=== PATIENT | female | born 1940 | race Caucasian/White ===

== ENCOUNTER 2017-08-27 19:21 | Observation (INO) ==
--- NOTE | 2017-08-27 20:09 | CT ---
STUDY: CT HEAD WITHOUT CONTRAST HISTORY: Dizzy. Low blood pressure. COMPARISON: None. TECHNIQUE: Multiple axial images of the head were obtained from the skull base to the vertex without administration of IV contrast. Automated exposure control (AEC) was utilized to adjust the MA and/or kV. Findings: The sulci, cisterns and ventricles are prominent consistent with diffuse volume loss. There are scattered foci of low attenuation in the periventricular and subcortical white matter of penny th hemispheres. This is a nonspecific finding which likely represents microangiopathic change in a pa tient of this age. There is no evidence of acute territorial infarction, hemorrhage, mass, mass effect or midline shift. There are no abnormal extra-axial fluid collections. There is no evidence of acute osseous abnormality or significant soft tissue swelling. IMPRESSION: 1. No evidence of acute intracranial abnormality. 2. Nonspecific white matter change and volume loss as described. 3. If there remains strong clinical concern for acute intracranial abnormality, then an MRI examinati on should be considered for further evaluation. Reported By:
--- NOTE | 2017-08-27 20:12 | DR.GENAD ---
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 GETTING WORSE. - Complaint/Symptoms Chief Complaint Doctors Comments: DIZZINESS AND ATAXIA THAT STARTED TODAY. - Nurses notes reviewed Nurses Notes Review: Yes - Source History Provided: Patient, Family Member - Mode of Arrival Mode of Arrival: Wheelchair - Timing Came on: Suddenly - Duration Duration: Constant Duration: Days - Severity Severity: Moderate ROS - Review of Systems Constitutional: No Symptoms Reported Eyes: No Symptoms Reported ENTM: No Symptoms Reported Respiratoy: No Symptoms Reported Cardiovascular: No Symptoms Reported Gastrointestinal/Abdominal: No Symptoms Reported Neurological: Dizziness Musculoskeletal: No Symptoms Reported Integumentary: No Symptoms Reported Hematologic/Lymphatic: No Symptoms Reported Endocrine: No Symptoms Reported All Other Systems: Reviewed and Negative PE - General Limitations: No Limitations General Appearance: Alert - Head Head Exam: Normal Inspection - Eyes Eye exam: Normal Appearance - ENT ENT Exam: Normal External Ear Exam External Ear Exam: Normal External Inspection TM/Canal Exam: Bilateral Normal Nose Exam: Normal Nose Exam Mouth Exam: Normal Inspection Throat Exam: Normal Inspection - Neck Neck Exam: Normal Inspection - Chest Chest Inspection: Symmetric Chest Wall Rise - Respiratory Respiratory Exam: Normal Lung Sounds Bilat Respiratory Exam: Bilateral Clear to Auscultation - Cardiovascular Cardiovascular Exam: Regular Rate, Normal Rhythm, Normal Heart Sounds - Abdominal Exam Abdominal Exam: Normal Bowel Sounds, Soft. negative: Tenderness - Extremities Extremities Exam: Normal Inspection - Back Back Exam: Normal Inspection - Neurologic Neurological Exam: Alert, Oriented X3, CN II-XII Intact. negative: Motor Sensory Deficit - Psychiatric Psychiatric Exam: Normal Affect, Normal Mood - Skin Skin Exam: Normal Color - Vital Signs Vitals: Temperature 98.1 F Pulse Rate [Apical] 72 Pulse Rate 67 Respiratory Rate 19 Blood Pressure [Left Arm] 131/63 Blood Pressure 167/72 O2 Sat by Pulse Oximetry 96 MDM - Additional Information Additional Information Obtained From: Family - Differential Diagnosis Differential Diagnosis: DIZZINESS, VERTIGO, CVA, WA, ELECTROLYTE IMBALANCE. Course - Treatment Treatment: SEE ORDERS. - Consultation Consultation Comments: DISCUSS PATIENT WITH DR. CHAMORRO, HE WILL ADMIT PATIENT. - Education/Counseling Education/Counseling: Patient, Family, Education Educated On: Diagnosis, Needs for Follow Up ROR - Labs Reviewed Laboratory Results Reviewed?: Yes Result Diagrams: 08/29/17 05:40 08/29/17 05:40 - XRAY XRAY Interpreted by: Radiologist XRAY Findings: REPORT DISCUSS WITH PATIENT - EKG Rhythm: NSR (EKG NOTED.) - Labs Reviewed Laboratory: WBC Cancelled 08/27/17 19:30 RBC Cancelled 08/27/17 19:30 Hgb Cancelled 08/27/17 19:30 Hct Cancelled 08/27/17 19:30 MCV Cancelled 08/27/17 19:30 MCH Cancelled 08/27/17 19:30 MCHC Cancelled 08/27/17 19:30 RDW Cancelled 08/27/17 19:30 Plt Count Cancelled 08/27/17 19:30 MPV Cancelled 08/27/17 19:30 Neut % (Auto) Cancelled 08/27/17 19:30 Lymph % (Auto) Cancelled 08/27/17 19:30 [place] % (Auto) Cancelled 08/27/17 19:30 Eos % (Auto) Cancelled 08/27/17 19:30 Baso % (Auto) Cancelled 08/27/17 19:30 Neut # (Auto) Cancelled 08/27/17 19:30 Lymph # (Auto) Cancelled 08/27/17 19:30 [place]enson # (Auto) Cancelled 08/27/17 19:30 Eos # (Auto) Cancelled 08/27/17 19:30 Baso # (Auto) Cancelled 08/27/17 19:30 Absolute Nucleated RBC Cancelled 08/27/17 19:30 INR Target Range - 08/27/17 19:30 INR 0.92 (0.8-1.3) 08/27/17 19:30 APTT 27.6 SECONDS (22.9-36.5) 08/27/17 19:30 PTT Comment - 08/27/17 19:30 Sodium Cancelled 08/27/17 19:30 Corrected Sodium Cancelled 08/27/17 19:30 Potassium Cancelled 08/27/17 19:30 Chloride Cancelled 08/27/17 19:30 Carbon Dioxide Cancelled 08/27/17 19:30 BUN Cancelled 08/27/17 19:30 Creatinine Cancelled 08/27/17 19:30 Est GFR (MDRD) Af Amer Cancelled 08/27/17 19:30 Est GFR (MDRD) Non-Af Cancelled 08/27/17 19:30 Glucose Cancelled 08/27/17 19:30 Calcium Cancelled 08/27/17 19:30 Corrected Calcium Cancelled 08/27/17 19:30 Magnesium 1.6 mg/dL (1.7-2.9) L 08/27/17 19:30 Total Bilirubin Cancelled 08/27/17 19:30 AST Cancelled 08/27/17 19:30 ALT Cancelled 08/27/17 19:30 Alkaline Phosphatase Cancelled 08/27/17 19:30 Creatine Kinase 67 Units/L (26-192) 08/27/17 19:30 CK-MB (CK-2) 1.0 ng/mL (0-4.0) 08/27/17 19:30 CK/CKMB % Calc 1.5 % (<4) 08/27/17 19:30 Troponin I < 0.02 ng/mL (0-1.5) 08/27/17 19:30 Total Protein Cancelled 08/27/17 19:30 Albumin Cancelled 08/27/17 19:30 Globulin Cancelled 08/27/17 19:30 Albumin/Globulin Ratio Cancelled 08/27/17 19:30 - Diagnosis Discharge Problem: Dizziness, Ataxia - Discharge Plan Disposition: ADMITTED INPATIENT Condition: Stable
[2017-08-27 20:16] LABS: CKMB % 1.5 % (<4); CREATINE KINASE 67 Units/L (26-192); MAGNESIUM 1.6 mg/dL (1.7-2.9); TROPONIN I < 0.02 ng/mL (0-1.5)
--- NOTE | 2017-08-27 21:17 | RAD ---
Chest, AP portable Indication: Dizziness Comparison: None Findings: Cardiac silhouette size is at the upper limits of normal. The lungs are grossly clear witho ut overt edema, dense infiltrates, or significant pleural effusion. Previous median sternotomy is not ed. Impression: No acute chest process. Reported By:
[2017-08-27] MEDS: NS 1000 ML 1,000 ML IV SCH (23:00)
[2017-08-28 02:20] LABS: CKMB % 2.1 % (<4); CREATINE KINASE 48 Units/L (26-192); CREATINE KINASE MB < 1.0 ng/mL (0-4.0); TROPONIN I < 0.02 ng/mL (0-1.5)
[2017-08-28] MEDS: SILVADENE TOP SCH ×3 (03:43→21:06)
[2017-08-28 06:28] LABS: BASOPHILS # (AUTO) 0.1 X10^3/uL (0.0-0.1); BASOPHILS % (AUTO) 0.6 % (0.2-1.0); EOSINOPHILS # (AUTO) 0.2 x10^3/uL (0.0-0.2); EOSINOPHILS % (AUTO) 1.5 % (0.9-2.9); HEMOGLOBIN 14.9 g/dL (12.0-16.0); LYMPHOCYTES # (AUTO) 2.5 X10^3/uL (1.3-2.9); LYMPHOCYTES % (AUTO) 23.7 % (21.0-51.0); MEAN CORPUSCULAR HGB CONC 34.7 g/dL (33.0-35.0); MEAN CORPUSCULAR VOLUME 89.5 fL (80.0-100.0); MEAN PLATELET VOLUME 10.6 fL (7.4-11.0); MONOCYTES # (AUTO) 0.8 x10^3/uL (0.3-0.8); MONOCYTES % (AUTO) 7.5 % (0.0-13.0); NEUTROPHILS # (AUTO) 7.1 x10^3/uL (2.2-4.8); NEUTROPHILS % (AUTO) 66.7 % (42.0-75.0); PLATELET COUNT 209 X10^3/uL (150.0-450.0); RED BLOOD COUNT 4.81 X10^6/uL (3.5-5.4); RED CELL DISTRIBUTION WIDTH 14.3 % (11.6-16.5); WHITE BLOOD COUNT 10.6 X10^3/uL (3.6-10.0)
[2017-08-28 06:57] LABS: ALANINE AMINOTRANSFERASE 17 Units/L (12-78); ALBUMIN 2.9 g/dL (3.4-5.0); ALKALINE PHOSPHATASE 54 Units/L (46-116); ASPARTATE AMINO TRANSFERASE 16 Units/L (15-37); BLOOD UREA NITROGEN 20 mg/dL (7-18); CALCIUM 8.6 mg/dL (8.5-10.1); CARBON DIOXIDE 26.9 mmol/L (21-32); CHLORIDE 107 mmol/L (98-107); CHOL/HDL RATIO 6.4 (0.0-5.0); CHOLESTEROL 212 mg/dL (0-200); COR CA(FOR HYPOALB) 9.5 mg/dL (8.5-10.1); CREATININE 1.03 mg/dL (0.55-1.02); HDL CHOLESTEROL 33 mg/dL (40-60); MAGNESIUM 1.6 mg/dL (1.7-2.9); SODIUM 142 mmol/L (136-145); TRIGLYCERIDES 159 mg/dL (0-150); eGFR NON BLACK RACES 56 (>60)
[2017-08-28 07:38] LABS: BILIRUBIN,URINE NEGATIVE (NEGATIVE); BLOOD/HEMOGLOBIN,URINE NEGATIVE (NEGATIVE); GLUCOSE, URINE NEGATIVE (NEGATIVE); KETONES,URINE NEGATIVE (NEGATIVE); LEUKOCYTE ESTERASE ,URINE NEGATIVE (NEGATIVE); NITRITES,URINE NEGATIVE (NEGATIVE); PROTEIN,URINE NEGATIVE (NEGATIVE); UROBILINOGEN,URINE NORMAL (NORMAL)
[2017-08-28 07:44] LABS: APPEARANCE,URINE CLEAR (CLEAR); COLOR,URINE YELLOW (YELLOW)
[2017-08-28] MEDS ORDERED: ZESTRIL TAB 20 MG ONE (08:32)
[2017-08-28] MEDS: TOPROL XL PO SCH (08:37)
[2017-08-28] MEDS: ZESTRIL TAB 20 MG PO SCH (08:37)
[2017-08-28] MEDS: CHLORTHALIDONE PO SCH (08:37)
[2017-08-28 09:05] LABS: CREATINE KINASE 49 Units/L (26-192); CREATINE KINASE MB < 1.0 ng/mL (0-4.0); TROPONIN I < 0.02 ng/mL (0-1.5)
[2017-08-28 14:01] VITALS: BMI 38.9
--- NOTE | 2017-08-28 14:03 | MRI ---
MRI BRAIN WITHOUT CONTRAST CLINICAL HISTORY: 77-year-old female with ataxia and dizziness. Patient complains of headaches and li ghtheadedness. COMPARISON: CT head 08/27/2017. TECHNIQUE: Multiplanar, multisequence MR images of the brain were obtained without contrast. FINDINGS: There is no evidence of diffusion restriction. The craniocervical junction is normal. Pitui tary and optic nerve complex are normal. Scattered punctate T2 FLAIR signal hyperintensities are pres ent within the periventricular and supraventricular white matter that are nonspecific in appearance b ut most likely to represent microvascular white matter ischemic changes. Normal signal characteristic s and morphology are demonstrated within the cerebral cortex, corpus callosum, deep tilley nuclei, brai nstem and cerebellum. The major vascular flow voids, to include the dural venous sinuses, are intact. No abnormal susceptibility on gradient imaging. Age advanced cortical volume loss is present, with c ommensurate sulcal and ventricular prominence. The basilar cisterns are normal. The orbits and globes are within normal limits. Trace mucosal thickening of the floor of the maxillar y sinuses. Remaining paranasal sinuses, mastoid air cells and tympanic cavities are clear. IMPRESSION: 1. No acute ischemic or hemorrhagic insult. 2. Mild, chronic microvascular white matter ischemic disease with associated volume loss. Reported By:
--- NOTE | 2017-08-28 14:15 | DR.H&P ---
H&P - History & Physical for Day of: H&P Date: 08/27/17 - Chief Complaint Chief Complaint: dizziness, "light headed" - History of Present Illness History of Present Illness: 77 WF ER ADMISSION WITH CO DIZZINESS, LIGHT HEADED. ON AND OFF FOR SEVERAL DAYS. PT STATES DIZZINESS WAS WORSE IF SHE TURNED HER HEAD TO SIDE. PT HAS PMH OF CAD S/P BYPASS >10 YEARS AGO, HTN, OA. 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 PT HAD CT HEAD IN ER, STABLE FOR ACUTE FINDINGS, BP RUNNING LOWER PER PT. PT ADMITTED FOR SERIAL CE AND EKG'S CXR ON ADMISSION - Past Medical History Past Medical History: Arthritis, Coronary Artery Disease, Hypertension - Past Surgical History Surgical History: Cholecystectomy, Tonsillectomy, Other - Family History Family Medical History: Hypertension - Social History Does patient currently use any type of tobacco product: No Have you used tobacco products in the last 12 months: No Type of Tobacco Use: None Does any household member use tobacco: No Alcohol Use: None Drug Use: None - Medications Home Medications: codeine Allergy (Verified 08/27/17 19:26) CONTINUE taking the following medications chlorthalidone 25 mg PO DAILY 08/27/17 [History] lisinopril 20 mg PO DAILY 08/27/17 [History] metoprolol succinate 50 mg PO DAILY 08/27/17 [History] - Review of Systems Constitutional: Weakness Eyes: No Symptoms Reported ENT: No Symptoms Reported Respiratory: No Symptoms Reported, SOB with Excertion (MILD) Cardiovascular: Light Headedness Gastrointestinal: No Symptoms Reported Genitourinary: No Symptoms Reported Musculoskeletal: Leg Pain Skin: No Symptoms Reported Neurological: Other (DIZZINESS) - Physical Exam Vital Signs: Temperature 98.6 F Pulse Rate [Right Brachial] 70 Pulse Rate [Apical] 54 Pulse Rate 67 Respiratory Rate 18 Blood Pressure [Right Arm] 136/63 Blood Pressure [Left Arm] 120/58 Blood Pressure 167/72 O2 Sat by Pulse Oximetry 95 Oriented: Normal Eyes: Normal Ear: Normal Throat: Normal Respiratory: Clear Throughout Cardiovascular: Normal. negative: Edema : Normal Auscultation: Bowel Sounds: Normal Palpation: Normal Tenderness: Normal Skin: Normal Musculoskeletal: Right, Left, Knee Psychiatric: Normal Mood Description: Calm Speech Pattern: Clear, Appropriate - Assessment/Plan (1) Dizziness Status: Acute Plan: ADMIT, CT HEAD ON ADMISSION AM MRI. CAROTID ARTERY US, SERIAL CE AND EKG. BP MONITORING, VERIFY HOME MEDS. AM FLP, GENTLE HYDRATION, UA (2) Hypotension Status: Acute (3) CAD (coronary artery disease) Status: Acute (4) Osteoarth NOS-l/leg Status: Acute - Allergies Allergies/Adverse Reactions: Allergies Allergy/AdvReac Type Severity Reaction Status Date / Time codeine Allergy Verified 08/27/17 19:26
--- NOTE | 2017-08-28 14:20 | PCM.PROG ---
Progress Note - Progress Note for Day of Date of Exam: 08/28/17 - Subjective Subjective: 77 WF ER ADMISSION IN INTRACTABLE DIZZINESS AND FEELING LIGHT HEADED WITH CP RUNNING LOWER. PT HAS HX OF HTN ON BP MEDICATION. PT HAS HX OF CAD WITH BYPASS. PT DENIES ANY CP OR SOB. DENIES DIZZINESS THIA AM. PT TO HAVE MRI BRAIN THIS AM AND CAROTID ARTERY US. CONTINUE HOME MEDS, BP MONITORING, STATIN - Past Medical Family Social History Past Med/Fam/Surg Hx: No changes since H&P Allergies: Allergies codeine Allergy (Verified 08/27/17 19:26) - Review of Systems ROS: No change since H&P - Vital Signs and I&O's Vital Signs: Temperature 98.6 F Pulse Rate [Right Brachial] 70 Pulse Rate [Apical] 54 Pulse Rate 67 Respiratory Rate 18 Blood Pressure [Right Arm] 136/63 Blood Pressure [Left Arm] 120/58 Blood Pressure 167/72 O2 Sat by Pulse Oximetry 95 Intake and Output: Intake & Output 08/26/17 08/27/17 08/28/17 08/29/17 11:59 11:59 11:59 11:59 Intake Total 160 / 160 Balance 160 / 160 - Physical Exam Oriented: Normal Eyes: Normal Ear: Normal Throat: Normal Respiratory: Normal Cardiovascular: Normal. negative: Edema : Normal Auscultation: Bowel Sounds: Normal Tenderness: Normal Skin: Normal Musculoskeletal: Right, Left, Knee Psychiatric: Normal Mood Description: Calm Speech Pattern: Clear, Appropriate - Laboratory and Diagnostics Result Diagrams: 08/28/17 05:43 08/28/17 05:43 Labs: Laboratory WBC 10.6 X10^3/uL (3.6-10.0) H 08/28/17 05:43 RBC 4.81 X10^6/uL (3.5-5.4) 08/28/17 05:43 Hgb 14.9 g/dL (12.0-16.0) 08/28/17 05:43 Hct 43.0 % (36.0-47.0) 08/28/17 05:43 MCV 89.5 fL (80.0-100.0) 08/28/17 05:43 MCH 31.0 pg (27.0-34.0) 08/28/17 05:43 MCHC 34.7 g/dL (33.0-35.0) 08/28/17 05:43 RDW 14.3 % (11.6-16.5) 08/28/17 05:43 Plt Count 209 X10^3/uL (150.0-450.0) 08/28/17 05:43 MPV 10.6 fL (7.4-11.0) 08/28/17 05:43 Neut % (Auto) 66.7 % (42.0-75.0) 08/28/17 05:43 Lymph % (Auto) 23.7 % (21.0-51.0) 08/28/17 05:43 Mineral % (Auto) 7.5 % (0.0-13.0) 08/28/17 05:43 Eos % (Auto) 1.5 % (0.9-2.9) 08/28/17 05:43 Baso % (Auto) 0.6 % (0.2-1.0) 08/28/17 05:43 Neut # (Auto) 7.1 x10^3/uL (2.2-4.8) H 08/28/17 05:43 Lymph # (Auto) 2.5 X10^3/uL (1.3-2.9) 08/28/17 05:43 Mineral # (Auto) 0.8 x10^3/uL (0.3-0.8) 08/28/17 05:43 Eos # (Auto) 0.2 x10^3/uL (0.0-0.2) 08/28/17 05:43 Baso # (Auto) 0.1 X10^3/uL (0.0-0.1) 08/28/17 05:43 Absolute Nucleated RBC 0.2 /100WBC 08/28/17 05:43 INR Target Range - 08/27/17 19:30 INR 0.92 (0.8-1.3) 08/27/17 19:30 APTT 27.6 SECONDS (22.9-36.5) 08/27/17 19:30 PTT Comment - 08/27/17 19:30 Sodium 142 mmol/L (136-145) 08/28/17 05:43 Corrected Sodium TNP 08/28/17 05:43 Potassium 3.7 mmol/L (3.5-5.1) 08/28/17 05:43 Chloride 107 mmol/L (98-107) 08/28/17 05:43 Carbon Dioxide 26.9 mmol/L (21-32) 08/28/17 05:43 BUN 20 mg/dL (7-18) H 08/28/17 05:43 Creatinine 1.03 mg/dL (0.55-1.02) H 08/28/17 05:43 Est GFR (MDRD) Af Amer > 60 (>60) 08/28/17 05:43 Est GFR (MDRD) Non-Af 56 (>60) L 08/28/17 05:43 Glucose 100 mg/dL (65-99) H 08/28/17 05:43 Calcium 8.6 mg/dL (8.5-10.1) 08/28/17 05:43 Corrected Calcium 9.5 mg/dL (8.5-10.1) 08/28/17 05:43 Magnesium 1.6 mg/dL (1.7-2.9) L 08/28/17 05:43 Total Bilirubin 1.10 mg/dL (0.2-1.0) H 08/28/17 05:43 AST 16 Units/L (15-37) 08/28/17 05:43 ALT 17 Units/L (12-78) 08/28/17 05:43 Alkaline Phosphatase 54 Units/L (46-116) 08/28/17 05:43 Creatine Kinase 49 Units/L (26-192) 08/28/17 08:15 CK-MB (CK-2) < 1.0 ng/mL (0-4.0) 08/28/17 08:15 CK/CKMB % Calc 2.0 % (<4) 08/28/17 08:15 Troponin I < 0.02 ng/mL (0-1.5) 08/28/17 08:15 Total Protein 6.0 g/dL (6.4-8.2) L 08/28/17 05:43 Albumin 2.9 g/dL (3.4-5.0) L 08/28/17 05:43 Globulin 3.1 g/dL (2.5-4.5) 08/28/17 05:43 Albumin/Globulin Ratio 0.9 Ratio (1.1-2.1) L 08/28/17 05:43 Triglycerides 159 mg/dL (0-150) H 08/28/17 05:43 Cholesterol 212 mg/dL (0-200) H 08/28/17 05:43 LDL Cholesterol, Calc 147 mg/dL (0-100) H 08/28/17 05:43 HDL Cholesterol 33 mg/dL (40-60) L 08/28/17 05:43 Cholesterol/HDL Ratio 6.4 (0.0-5.0) H 08/28/17 05:43 Specimen Type Clean catch urine 08/28/17 07:30 Urine Color Yellow (YELLOW) 08/28/17 07:30 Urine Appearance Clear (CLEAR) 08/28/17 07:30 Urine pH 6.0 (5.0 - 8.0) 08/28/17 07:30 Ur Specific [place] 1.015 (1.000-1.030) 08/28/17 07:30 Urine Protein Negative (NEGATIVE) 08/28/17 07:30 Urine Glucose (UA) Negative (NEGATIVE) 08/28/17 07:30 Urine Ketones Negative (NEGATIVE) 08/28/17 07:30 Urine Occult Blood Negative (NEGATIVE) 08/28/17 07:30 Urine Nitrite Negative (NEGATIVE) 08/28/17 07:30 Urine Bilirubin Negative (NEGATIVE) 08/28/17 07:30 Urine Urobilinogen Normal (NORMAL) 08/28/17 07:30 Ur Leukocyte Esterase Negative (NEGATIVE) 08/28/17 07:30 - Plan (1) Dizziness Status: Acute Plan: CT HEAD ON ADMISSION, MRI FOR THIS AM. CAROTID ARTERY US, SERIAL CE AND EKG STABLE. BP MONITORING, VERIFY HOME MEDS. STATIN AND ASPIRIN, GENTLE HYDRATION, UA (2) Hypotension Status: Acute (3) CAD (coronary artery disease) Status: Acute (4) Osteoarth NOS-l/leg Status: Acute
--- NOTE | 2017-08-28 14:55 | VAS ---
Exam: Carotid Doppler exam History: 77-year-old female with dizziness. Evaluate for possible carotid artery stenosis. Comparison: None Findings: Mild degree of plaque is present in the left common and proximal internal carotid arteries. On the right, peak systolic velocities in cm/sec of the right internal and common carotid arteries me asure 76 and 61 respectively. The greatest ICA/CCA ratio on the right is 1.24 On the left, peak systolic velocities cm/sec of the left internal and common carotid arteries measure 102 and 63 respectively. The greatest ICA/CCA ratio on the left is 1.61. Antegrade flow is documented in patent vertebral arteries bilaterally. Impression: No hemodynamically significant carotid stenosis is seen on either side. Reported By:
[2017-08-28] MEDS: NS 1000 ML 1,000 ML IV SCH (15:24)
[2017-08-28] MEDS ORDERED: CRESTOR TAB 10 MG PO SCH (21:00)
[2017-08-29] MEDS: NS 1000 ML 1,000 ML IV SCH (03:11)
[2017-08-29 06:07] LABS: BASOPHILS # (AUTO) 0.1 X10^3/uL (0.0-0.1); BASOPHILS % (AUTO) 0.7 % (0.2-1.0); EOSINOPHILS # (AUTO) 0.2 x10^3/uL (0.0-0.2); HEMATOCRIT 44.3 % (36.0-47.0); HEMOGLOBIN 14.9 g/dL (12.0-16.0); LYMPHOCYTES # (AUTO) 2.7 X10^3/uL (1.3-2.9); LYMPHOCYTES % (AUTO) 26.2 % (21.0-51.0); MEAN CORPUSCULAR HEMOGLOBIN 30.6 pg (27.0-34.0); MEAN CORPUSCULAR HGB CONC 33.7 g/dL (33.0-35.0); MEAN CORPUSCULAR VOLUME 90.6 fL (80.0-100.0); MEAN PLATELET VOLUME 10.6 fL (7.4-11.0); MONOCYTES # (AUTO) 0.7 x10^3/uL (0.3-0.8); MONOCYTES % (AUTO) 7.3 % (0.0-13.0); NEUTROPHILS # (AUTO) 6.6 x10^3/uL (2.2-4.8); NEUTROPHILS % (AUTO) 63.8 % (42.0-75.0); PLATELET COUNT 198 X10^3/uL (150.0-450.0); RED BLOOD COUNT 4.88 X10^6/uL (3.5-5.4); RED CELL DISTRIBUTION WIDTH 14.6 % (11.6-16.5); WHITE BLOOD COUNT 10.3 X10^3/uL (3.6-10.0)
[2017-08-29 06:27] LABS: ALANINE AMINOTRANSFERASE 17 Units/L (12-78); ALBUMIN 2.8 g/dL (3.4-5.0); ALKALINE PHOSPHATASE 53 Units/L (46-116); ASPARTATE AMINO TRANSFERASE 16 Units/L (15-37); BLOOD UREA NITROGEN 20 mg/dL (7-18); CALCIUM 8.6 mg/dL (8.5-10.1); CARBON DIOXIDE 27.6 mmol/L (21-32); CHLORIDE 105 mmol/L (98-107); COR CA(FOR HYPOALB) 9.6 mg/dL (8.5-10.1); COR NA(FOR HYPERGLY) 141 mmol/L (136-145); CREATININE 1.02 mg/dL (0.55-1.02); SODIUM 141 mmol/L (136-145); TOTAL PROTEIN 6.1 g/dL (6.4-8.2); eGFR NON BLACK RACES 56 (>60)
[2017-08-29] MEDS ORDERED: ROCEPHIN VIAL 1 GRAM 1 G in NS 100 ML IV + SPIKE MINIBAG* 100 ML IV SCH (09:45)
[2017-08-29] MEDS ORDERED: ZESTRIL TAB 20 MG ONE (09:51)
[2017-08-29] MEDS: ZESTRIL TAB 20 MG PO SCH (10:09)
[2017-08-29] MEDS: CHLORTHALIDONE PO SCH (10:09)
[2017-08-29] MEDS: SILVADENE TOP SCH (10:10)
[2017-08-29] MEDS: TOPROL XL PO SCH (10:10)
[2017-08-29] MEDS ORDERED: NS 100 ML IV 100 ML IV ONE (10:18)
[2017-08-29 12:12] VITALS: BP 113/58
== END 2017-08-29 12:40 | disposition home or self-care (01) ==
LOC: ER 19:24 → MED/SURG 19:24
PROVIDERS: ADMIT Internal Medicine; ATTEND Internal Medicine
DX: E78.2 Mixed hyperlipidemia; J32.8 Other chronic sinusitis; I10 Essential (primary) hypertension; I25.10 Atherosclerotic heart disease of native coronary artery without angina pectoris; R94.31 Abnormal electrocardiogram [ECG] [EKG]; R42 Dizziness and giddiness; I95.89 Other hypotension; R51 Headache
CPT/HCPCS: 36415; 70450; 70551; 71010; 71045; 80053; 80061; 81003; 82550; 82553; 83036; 83735; 84484; 85025; 85610; 85730; 93005; 93010; 93880; 94760; 96365; 99284; A4222; G0378; J0696; J7030; J7050